=== PATIENT | female | born 1960 | race Caucasian/White ===

== ENCOUNTER 2023-04-21 14:42 | Emergency (ER) | payer BC ==
[~2023-04-21] VITALS: Ht 154.9 cm; Wt 70.8 kg
[2023-04-21 15:40] VITALS: BP 156/100; PULSE 78; RESP 18; TEMP 97.9; O2SAT 98
[2023-04-21 16:00] LABS: FLU A ANTIGEN negative (NEGATIVE); FLU B ANTIGEN NEGATIVE (NEGATIVE)
== END 2023-04-21 16:23 | disposition home or self-care (01) ==
LOC: MED 14:42
DX: M79.10 Myalgia, unspecified site (principal); R68.83 Chills (without fever); Z20.822 Contact with and (suspected) exposure to COVID-19
CPT/HCPCS: 99283